=== PATIENT | female | born 1950 | race Caucasian/White ===

== ENCOUNTER 2016-10-08 14:35 | Observation (INO) | payer MEDICARE ==
[~2016-10-08] VITALS: Ht 162.6 cm; Wt 62.1 kg
[2016-10-08 23:10] LABS: HEMOGLOBIN 13.7 gm/dl (12.3-15.3); RED BLOOD COUNT 4.69 M/UL (4.00-5.10); WHITE BLOOD COUNT 10.2 K/UL (4.5-11.0)
[2016-10-08 23:21] LABS: BUN/CREATININE RATIO 22 (0-10)
[2016-10-09] MEDS ORDERED: PROTONIX 40 MG40 M1 PO (10:58)
[2016-10-09] MEDS ORDERED: METOPROLOL TART25 MG PO (10:58)
[2016-10-09] MEDS ORDERED: CALCIUM 600 +1 EAC8 PO (11:00)
[2016-10-09] MEDS ORDERED: SIMVASTATIN40 MG PO (11:00)
[2016-10-09] MEDS ORDERED: FISH OIL 1,0001 EACH PO (11:01)
[2017-02-09] MEDS ORDERED: MULTI-DAY VITA1 EACH PO (08:26)
== END 2016-10-09 15:43 | disposition home or self-care (01) ==
LOC: ER1 14:35 → ZEROF 10-09 09:05 → MED SURG 4 10-09 10:38
PROVIDERS: Family Medicine; ADMIT Internal Medicine
DX: R07.9 Chest pain, unspecified (principal); R10.13 Epigastric pain; I10 Essential (primary) hypertension; E78.5 Hyperlipidemia, unspecified; R91.8 Other nonspecific abnormal finding of lung field; K21.9 Gastro-esophageal reflux disease without esophagitis; K44.9 Diaphragmatic hernia without obstruction or gangrene; Z79.899 Other long term (current) drug therapy; Z90.49 Acquired absence of other specified parts of digestive tract; Z90.710 Acquired absence of both cervix and uterus; Z90.81 Acquired absence of spleen
CPT/HCPCS: 36415; 71010; 80053; 82550; 82553; 83690; 83874; 84484; 85025; 93005; 96374; 99285; G0378; J2405

== ENCOUNTER → 2017-01-04 | Outpatient (CLI) | payer MEDICARE ==
[~2017-01-04] MED LIST: CALCIUM 600 +1 EAC8 PO; FISH OIL 1,0001 EACH PO; METOPROLOL TART25 MG PO; MULTI-DAY VITA1 EACH PO; PROTONIX 40 MG40 M1 PO; SIMVASTATIN40 MG PO
[2017-01-04 17:38] LABS: HEMOGLOBIN 12.7 gm/dl (12.3-15.3); RED BLOOD COUNT 4.4 M/UL (4.00-5.10); WHITE BLOOD COUNT 11.7 K/UL (4.5-11.0)
[2017-01-04 17:59] LABS: BUN/CREATININE RATIO 17 (0-10)
== END ==
LOC: LAB 17:21
PROVIDERS: Family Medicine
DX: R10.9 Unspecified abdominal pain (principal); R11.0 Nausea
CPT/HCPCS: 36415; 80053; 85027

== ENCOUNTER → 2017-01-05 | Outpatient (CLI) | payer MEDICARE | LOC: CT 08:39 | DX: R10.9 Unspecified abdominal pain (principal) | CPT/HCPCS: J7050; Q9962 ==

== ENCOUNTER → 2017-01-13 | Outpatient (CLI) | payer MEDICARE | LOC: CT 08:38 | DX: R91.1 Solitary pulmonary nodule (principal) | CPT/HCPCS: 71275; J7050; Q9965 ==

== ENCOUNTER → 2020-09-17 | Outpatient (CLI) | payer MEDICARE | LOC: MAMO 08:30 | DX: Z12.31 Encounter for screening mammogram for malignant neoplasm of breast (principal) | CPT/HCPCS: 77063; 77067 ==

== ENCOUNTER → 2021-10-31 | Outpatient (CLI) | payer MEDICARE | LOC: MAMO 08:00 | DX: Z12.31 Encounter for screening mammogram for malignant neoplasm of breast (principal) | CPT/HCPCS: 77063; 77067 ==